=== PATIENT | female | born 1990 | race Caucasian/White ===

== ENCOUNTER 2017-06-01 16:27 | Observation (INO) | payer MEDICAID, SELFPAY ==
[2017-06-01 16:42] VITALS: BMI 23.3
[2017-06-01] MEDS: chlordiazePOXIDE 25 MG Capsule PO ×2 (16:56→21:04)
[2017-06-01] MEDS: Buprenorphine HCl 2 MG TAB.SUBL SL (16:56)
[2017-06-01 17:50] LABS: Absolute Lymphocyte Count 2.03 X10^3/ul (0.83-4.51); Absolute Neutrophil Count 7.4 X10^3/uL (2.0-7.7); Basophil# 0.03 X10^3/uL; Basophil% 0.3 % (0-1); Eosinophil# 0.05 X10^3/uL; Eosinophils% 0.5 % (0-5); Hemoglobin 13.8 g/dl (12.0-15.0); Lymphocyte # 2.03 X10^3/ul (4.0); Lymphocyte % 20.2 % (19-41); Mean Corp Hgb Conc 33.7 g/gl (32-36); Mean Corpuscular Hgb 27.8 pg (27.0-32.0); Mean Corpuscular Volume 82.5 fL (81-99); Mean Platelet Vol. 8.8 fl (6.2-12.0); Monocyte# 0.51 X10^3/uL; Monocyte% 5.1 % (0-10); Neutrophil # 7.35 X10^3/uL (2.7-7.7); Neutrophil % 73.3 % (47-70); POSITIVE COUNT NO; POSITIVE DIFFERENTIAL NO; POSITIVE MORPHOLOGY NO; Platelet Count 262 K/mm3 (150-450); RBC Distribution Width CV 13.1 % (11.6-14.6); RBC Distribution Width SD 39.5 fl (35.1-43.9); Red Blood Count 4.97 M/mm3 (4.2-5.4)
[2017-06-01 18:00] VITALS: BP 140/71; PULSE 78; RESP 18; TEMP 36.7
[2017-06-01 18:15] LABS: ALB/GLOB Ratio 0.9 RATIO (0.9-2.4); AST(SGOT) 26 U/L (15-37); Alanine Aminotransfer ALT/SGPT 27 U/L (12-78); Albumin, Serum 3.7 g/dL (3.4-5.0); Alkaline Phosphatase 79 U/L (45-117); Anion Gap 11 (5-15); BUN 13 mg/dL (7-18); BUN/Creat Ratio 19.2 RATIO (10-20); Calcium,Total 8.9 mg/dL (8.5-10.1); Chloride 108 mmol/L (98-107); Creatinine, Serum 0.68 mg/dL (0.55-1.02); EST Glomerular Filtration Rate 110 mL/min (>60); Est Glom Filt Rate - Afr Amer 132 mL/min (>60); Estimated Creatinine Clearance 105.41 ml/min; Globulin 4.2 g/dL (2.2-4.2); Glucose 92 mg/dL (70-110); Magnesium 1.9 mg/dL (1.6-2.6); Potassium 4.6 mmol/L (3.5-5.1); Protein, Total 7.9 g/dL (6.4-8.2); Sodium Level 140 mmol/L (136-145)
[2017-06-01] MEDS: Methocarbamol 750 MG Tablet PO (21:04)
[2017-06-01] MEDS: Famotidine 20 MG Tablet PO (21:04)
[2017-06-01] MEDS: cloNIDine HCl 0.1 MG Tablet PO (21:04)
[2017-06-01 21:08] VITALS: BP 103/61; PULSE 67; RESP 16; TEMP 36.8
--- NOTE | 2017-06-01 21:56 | PCM.HP.STD ---
Problem List (1) Opioid withdrawal Status: Acute (2) Heroin abuse Status: Chronic (3) Hepatitis C Status: Chronic Qualifiers: Viral hepatitis chronicity: carrier Qualified Code(s): B18.2 - Chronic viral hepatitis C History of Present Illness Date of Admission: 06/01/17 Chief Complaint: [facility] for opioid. Patient is a 27 years old female with history of heroin abuse. She has been using heroin with muscular injection about 0.5 gram a day. Her last use was about 18 hours ago, but she only has mild abdominal pain and jittery feeling. She had intervention in 10/2016, stayed clean for about 3 month then relapses. She denied of any problems with hallucination. Past Medical History Past Medical History (Chronic Problems): Chronic Problems Heroin abuse (Chronic) Cocaine abuse (Chronic) Tobacco use (Chronic) Hepatitis C (Chronic) Allergies No Known Allergies Allergy (Verified 11/01/16 13:59) Home Medications: Ambulatory Orders Medication Instructions Recorded No Known/Unobtainable [No Known 11/01/16 Home Medications] Surgical History: - - I+D LLE abscess. 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 Patient denied of any profound fatigue. HEENT: Unremarkable. Patient denied of any dizziness, chronic headache, blurred vision, double vision, dry mouth, or nasal congestion. CV/respiratory: There is no exertional shortness of breath, chest pain, palpitation, wheezing, cough, claudication, cold feet, or peripheral edema. GI: Patient denied any abdominal pain, nausea, vomiting, diarrhea, constipation, melena, or hematochezia. : Patient denied any significant urinary symptoms. Neurology: Unremarkable. There is no history of seizure as an adult. Psychological: Unremarkable. ?. Endocrine: Unremarkable. Musculoskeletal: Unremarkable. VTE Information - Inpt Only VTE Present on Admission: No VTE Mechan Device Prophylaxis: None VTE Pharm Prophylaxis ordered?: No Reason prophylaxis not ordered:: Treatment Not Indicated Patient Problems: Active and Suspected Problems Opioid withdrawal (Acute) Objective: In general, patient is a well-nourished and developed adult. HEENT: Head is atraumatic, and normocephalic. Pupils are equal, round, and reactive to light and accommodations. Neck is supple. There is no lymphadenopathy, or thyromegaly. Oral mucosa is pink, and moist. There are no lesions. Heart: Auscultation is normal with regular rhythm and rate. There is no extra heart sounds, or murmurs. S1 and S2 are present. Point of maximal impulse is not displaced. Lungs: Lungs are clear to auscultation bilaterally. There is no wheezing, or crackles. Abdomen: Abdominal wall is non-tender, and non-distended. There is no palpable mass or organomegaly. Normoactive bowel sounds are present. Extremities: There is no cyanosis or clubbing. Peripheral pulses are palpable. There is no edema. Skin: There are no any skin discoloration or lesions. Neurological: CN II - XII are intact. Sensory and motor functions are grossly normal with no obvious deficit. Cerebellar functions are within normal range. Gait was not tested. - Physical Exam Vital Signs Temp Pulse Resp BP 98.2 F 67 16 103/61 06/01/17 21:08 06/01/17 21:08 06/01/17 21:08 06/01/17 21:08 Weight: 135 lb 9.349 oz Body Mass Index (BMI) 23.3 Intake and Output for Last 24 Hours 05/30/17 05/31/17 06/01/17 23:59 23:59 23:59 Intake Total 600 / 600 Balance 600 / 600 Laboratory Tests Past 24 Hrs 06/01/17 06/01/17 17:40 17:40 WBC 10.0 RBC 4.97 Hgb 13.8 Hct 41.0 MCV 82.5 MCH 27.8 MCHC 33.7 RDW 13.1 RDW Differential 39.5 Plt Count 262 MPV 8.8 Immature Gran % (Auto) 0.600 Neut % (Auto) 73.3 H Lymph % (Auto) 20.2 [place] % (Auto) 5.1 Eos % (Auto) 0.5 Baso % (Auto) 0.3 Absolute Neuts (auto) 7.4 Absolute Lymphs (auto) 2.03 Total Counted Not Reportable Sodium 140 Potassium 4.6 Chloride 108 H Carbon Dioxide 21.0 Anion Gap 11 BUN 13 Creatinine 0.68 Estim Creat Clear Calc 105.41 Est GFR (MDRD) Af Amer 132 Est GFR (MDRD) Non-Af 110 BUN/Creatinine Ratio 19.2 Glucose 92 Calcium 8.9 Magnesium 1.9 Total Bilirubin 0.30 AST 26 ALT 27 Alkaline Phosphatase 79 Total Protein 7.9 Albumin 3.7 Globulin 4.2 Albumin/Globulin Ratio 0.9 Assessment/Plan Active and Suspected Problems Opioid withdrawal (Acute) Patient is a 27 years old female with history of heroin abuse. She has been using heroin with muscular injection about 0.5 gram a day. Her last use was about 18 hours ago, but she only has mild abdominal pain and jittery feeling. She had intervention in 10/2016, stayed clean for about 3 month then relapses. She denied of any problems with hallucination. #1 Opioid withdrawal. Initiate [facility] stabilization protocol. #2 Heroin abuse. #3 History of hep C. VTE prophylaxis: low risk. Early ambulation. GI prophylaxis: H2 james po. Patient is full code. Disposition: per [facility]. Code Visit Inpatient E&M: 94846 Init Hosp L2
[2017-06-02] VITALS (7 sets, daily range): BP systolic 83–105; BP diastolic 44–66; PULSE 48–89; RESP 16–18; TEMP 36.2–36.9
[2017-06-02] MEDS: chlordiazePOXIDE 25 MG Capsule PO ×4 (00:11→13:19)
[2017-06-02] MEDS: cloNIDine HCl 0.1 MG Tablet PO ×2 (00:11→05:37)
[2017-06-02] MEDS: Buprenorphine HCl 2 MG TAB.SUBL SL ×3 (00:11→17:36)
[2017-06-02] MEDS: Methocarbamol 750 MG Tablet PO ×2 (05:37→22:22)
--- NOTE | 2017-06-02 06:19 | PCM.PROGNOTE ---
Patient Problems: Active and Suspected Problems Opioid withdrawal (Acute) Subjective: Patient is a 27-year-old female who presented to the [facility] office requesting inpatient admission for opioid withdrawal. She has been injecting heroin intramuscularly. She had rehab in October 2016 and stayed clean for approximately 3 months prior to relapsing. Tells me that she relapsed because she was hanging out with her siblings who were using drugs. she attended and inpt rehab program in October and received Vivitrol which she would be interested in again. Uses 1-2 times a day and uses 0.5 GM or less daily. She is currently living with her 8 YO dtr and with the paternal GM. The baby's father is in correction. Past medical history also significant for cocaine abuse, tobacco dependence and hepatitis C. CBC and BMP were unremarkable. LFTs were normal. She is afebrile and vital signs are stable. Denies nausea, vomiting, diarrhea. She is requesting a nicotine patch. She is complaining of pain in both deltoid areas which is a frequent site of injection for her. She has had to have an I&D of an abscess in her leg in the past. - Physical Exam General: Alert, Oriented x3, Cooperative, No apparent distress, Well developed, Well nourished HEENT: Atraumatic, PERRLA, EOMI, Normocephalic Oral: Moist Mucosa Neck: Supple, Trachea Midline Lungs: Clear to auscultation Cardiovascular: Regular rate, Regular Rhythm, Normal S1, Normal S2, No murmurs, No rub noted, No Gallop Abdomen: Bowel Sounds Present, Soft, Non Tender, Non-Distended Extremities: - - She has evidence of injection in both deltoids. There is an area of localized swelling on the left side and it is very warm to touch. There is no open wound and there is no significant erythema. There is a mild increase in warmth on the right side with no erythema, no swelling and no erythema Skin: No rashes Neurological: Cranial nerves II-XII grossly intact, Neuro grossly intact Psych/Mental Status: Normal Affect, Appropriate Vital Signs Temp Pulse Resp BP 97.5 F L 89 17 105/61 06/02/17 05:38 06/02/17 05:38 06/02/17 05:38 06/02/17 05:38 Weight: 135 lb 9.349 oz Body Mass Index (BMI) 23.3 Intake and Output for Last 24 Hours 05/31/17 06/01/17 06/02/17 23:59 23:59 23:59 Intake Total 600 / 600 450 / 450 Balance 600 / 600 450 / 450 Laboratory Tests Past 24 Hrs 06/01/17 06/01/17 17:40 17:40 WBC 10.0 RBC 4.97 Hgb 13.8 Hct 41.0 MCV 82.5 MCH 27.8 MCHC 33.7 RDW 13.1 RDW Differential 39.5 Plt Count 262 MPV 8.8 Immature Gran % (Auto) 0.600 Neut % (Auto) 73.3 H Lymph % (Auto) 20.2 [place] % (Auto) 5.1 Eos % (Auto) 0.5 Baso % (Auto) 0.3 Absolute Neuts (auto) 7.4 Absolute Lymphs (auto) 2.03 Total Counted Not Reportable Sodium 140 Potassium 4.6 Chloride 108 H Carbon Dioxide 21.0 Anion Gap 11 BUN 13 Creatinine 0.68 Estim Creat Clear Calc 105.41 Est GFR (MDRD) Af Amer 132 Est GFR (MDRD) Non-Af 110 BUN/Creatinine Ratio 19.2 Glucose 92 Calcium 8.9 Magnesium 1.9 Total Bilirubin 0.30 AST 26 ALT 27 Alkaline Phosphatase 79 Total Protein 7.9 Albumin 3.7 Globulin 4.2 Albumin/Globulin Ratio 0.9 Assessment/Plan Active and Suspected Problems Opioid withdrawal (Acute) Impressions 1. acute opiate withdrawal 2. nicotine dependence 3. cellulitis with possible abscess left deltoid CT scan of the RUE Start Augmentin 875 BID Nicotine patch Continue the [facility] protocol for acute opiate withdrawal. Code Visit Inpatient E&M: 37824 Subs Hosp L2
[2017-06-02] MEDS: Famotidine 20 MG Tablet PO ×2 (09:29→22:23)
--- NOTE | 2017-06-02 10:10 | CT_ITS ---
STUDY: CT LEFT SHOULDER REASON FOR EXAM: Female, 27 years old. Evaluate for soft tissue abscess of. Patient injected heroin in the left deltoid muscle. RADIATION DOSAGE (If Supplied By Facility): CTDIvol = ( 12.30 ) mGy, DLP = ( 271.38 ) mGycm TECHNIQUE: The patient was scanned in a multi detector CT scanner. High resolution transaxial imaging was performed without the administration of intravenous contrast material. Sagittal and coronal images were reconstructed. Individualized dose optimization techniques were used for this CT. COMPARISON: None. FINDINGS: Normal glenohumeral articulation. Normal glenoid rim, neck and visualized scapula. Normal humeral head, neck and tuberosities. Normal coracoid process. Normal visualized lateral clavicle. Normal acromioclavicular articulation. There is a Type II morphology (curved), with a neutral orientation. There is mild decreased attenuation within the anterior left deltoid muscle. This does not have the appearance of an abscess but no IV contrast administered. Some of this appearance may be related to beam hardening and streak artifact. Myositis or pyomyositis cannot be excluded. The muscles otherwise have a normal appearance. CT/Extremity Upper without Contra IMPRESSION: Nonspecific decreased attenuation within the anterior deltoid muscle possibly related to myositis or artifact. Electronically Signed: Ioana Sun MD at 11:11 EST , Service support ,
[2017-06-02] MEDS: Dicyclomine 10 MG Capsule 20 MG PO (13:19)
[2017-06-02] MEDS: Amox/Clavulanate 875 MG Tablet PO (17:36)
[2017-06-02] MEDS: QUEtiapine 25 MG Tablet PO (22:23)
[2017-06-02 22:40] LABS: Internal QC Validated? YES +Cl - CLEAR BKGD; Pregnancy, Urine Negative Negative
[2017-06-03] MEDS: Buprenorphine HCl 2 MG TAB.SUBL SL ×3 (01:49→20:59)
[2017-06-03 02:00] VITALS: BP 95/76; PULSE 90; RESP 16; TEMP 36.2
--- NOTE | 2017-06-03 08:26 | PCM.PROGNOTE ---
Patient Problems: Active and Suspected Problems Opioid withdrawal (Acute) Subjective: 27-year-old female using IM heroin admitted to the [facility] program for medical stabilization for acute opiate withdrawal. Complained of pain in her left deltoid area 06/02/2017 and this is associated with localized swelling, redness and increased warmth to touch. This is a site she uses to inject heroin into the muscle. CT scan showed no evidence abscess but showed nonspecific decreased attenuation within the anterior deltoid muscle. She was started on Augmentin. She has been afebrile since admission. Vital signs are stable. BP is on the low side but, she is asymptomatic. The urine was negative The Left deltoid is still a little tender but no erythema today and no warmth to touch Denies diarrhea, nausea, vomiting and states that she is doing quite well. - Physical Exam General: Alert, Oriented x3, Cooperative, No apparent distress Lungs: Clear to auscultation Cardiovascular: Regular rate, Regular Rhythm, Normal S1, Normal S2, No murmurs, No rub noted, No Gallop Abdomen: Bowel Sounds Present, Soft, Non Tender, Non-Distended Extremities: No cyanosis, No edema, - - there is no erythema of the left deltoid today and no erythema or increased warmth to touch......Suspect the pain and redness were due to recently shooting up in the deltoid muscle with tissue reaction Psych/Mental Status: Normal Affect, Appropriate Vital Signs Temp Pulse Resp BP 97.1 F L 90 16 95/76 06/03/17 02:00 06/03/17 02:00 06/03/17 02:00 06/03/17 02:00 Weight: 135 lb 9.349 oz Body Mass Index (BMI) 23.3 Intake and Output for Last 24 Hours 06/01/17 06/02/17 06/03/17 23:59 23:59 23:59 Intake Total 600 / 600 1730 / 1730 Balance 600 / 600 1730 / 1730 Laboratory Tests Past 24 Hrs 06/02/17 22:30 Urine Test Negative Assessment/Plan Active and Suspected Problems Opioid withdrawal (Acute) Impressions 1. acute opiate withdrawal 2. nicotine dependence 3. cellulitis with possible abscess left deltoid? abscess ruled out with CT of the LUE Continue the Augmentin while in the hospital but DC at [place] Continue the [facility] protocol for acute opiate withdrawal. Code Visit Inpatient E&M: 84603 Subs Hosp L2
--- NOTE | 2017-06-03 08:30 | PN_ITS ---
Patient Problems: Active and Suspected Problems Opioid withdrawal (Acute) Subjective: 27-year-old female using IM heroin admitted to the [facility] program for medical stabilization for acute opiate withdrawal. Complained of pain in her left deltoid area 06/02/2017 and this is associated with localized swelling, redness and increased warmth to touch. This is a site she uses to inject heroin into the muscle. CT scan showed no evidence abscess but showed nonspecific decreased attenuation within the anterior deltoid muscle. She was started on Augmentin. She has been afebrile since admission. Vital signs are stable. BP is on the low side but, she is asymptomatic. The urine was negative The Left deltoid is still a little tender but no erythema today and no warmth to touch Denies diarrhea, nausea, vomiting and states that she is doing quite well. - Physical Exam General: Alert, Oriented x3, Cooperative, No apparent distress Lungs: Clear to auscultation Cardiovascular: Regular rate, Regular Rhythm, Normal S1, Normal S2, No murmurs, No rub noted, No Gallop Abdomen: Bowel Sounds Present, Soft, Non Tender, Non-Distended Extremities: No cyanosis, No edema, - - there is no erythema of the left deltoid today and no erythema or increased warmth to touch......Suspect the pain and redness were due to recently shooting up in the deltoid muscle with tissue reaction Psych/Mental Status: Normal Affect, Appropriate Vital Signs Temp Pulse Resp BP 97.1 F L 90 16 95/76 06/03/17 02:00 06/03/17 02:00 06/03/17 02:00 06/03/17 02:00 Weight: 135 lb 9.349 oz Body Mass Index (BMI) 23.3 Intake and Output for Last 24 Hours 06/01/17 06/02/17 06/03/17 23:59 23:59 23:59 Intake Total 600 / 600 1730 / 1730 Balance 600 / 600 1730 / 1730 Laboratory Tests Past 24 Hrs 06/02/17 22:30 Urine Test Negative Assessment/Plan Active and Suspected Problems Opioid withdrawal (Acute) Impressions 1. acute opiate withdrawal 2. nicotine dependence 3. cellulitis with possible abscess left deltoid? abscess ruled out with CT of the LUE Continue the Augmentin while in the hospital but DC at [place] Continue the [facility] protocol for acute opiate withdrawal. Code Visit Inpatient E&M: 98490 Subs Hosp L2
[2017-06-03 09:10] VITALS: BP 88/47; PULSE 73; RESP 18; TEMP 36.3
[2017-06-03] MEDS: Famotidine 20 MG Tablet PO ×2 (09:12→21:00)
[2017-06-03] MEDS: Amox/Clavulanate 875 MG Tablet PO ×2 (09:12→17:27)
[2017-06-03 17:26] VITALS: BP 107/79; PULSE 76; RESP 18; TEMP 36.3
[2017-06-03] MEDS: Dicyclomine 10 MG Capsule 20 MG PO (17:27)
[2017-06-03] MEDS: Methocarbamol 750 MG Tablet PO (17:27)
[2017-06-03] MEDS: QUEtiapine 25 MG Tablet PO (21:14)
[2017-06-03 22:00] VITALS: BP 96/58; PULSE 86; RESP 16; TEMP 36.8
[2017-06-04] MEDS: Methocarbamol 750 MG Tablet PO (00:09)
[2017-06-04 06:21] VITALS: BP 84/44; PULSE 58; RESP 16; TEMP 36.8
[2017-06-04 08:45] VITALS: BP 93/54; PULSE 71; RESP 16; TEMP 36.4
[2017-06-04] MEDS: Buprenorphine HCl 2 MG TAB.SUBL SL (08:47)
[2017-06-04] MEDS: Famotidine 20 MG Tablet PO (08:48)
[2017-06-04] MEDS: Amox/Clavulanate 875 MG Tablet PO (08:48)
--- NOTE | 2017-06-04 09:51 | PCM.DC ---
- Discharge Diagnoses Current Active Problems: Current Active and Chronic Problems Opioid withdrawal (Acute) You will use the following diet at home:: No restrictions Your food should be the consistency of: Regular Your liquids should be the consistency of: Regular/Thin Discharge Activity: Return to Normal Activity Weight Bearing Status: Full weight bearing Allergies/Adverse Reactions: Allergies No Known Allergies Allergy (Verified 11/01/16 13:59) Medications to take at Discharge No Known/Unobtainable [No Known Home Medications] 11/01/16 Primary Care Physician: Care Physician,No Primary [Primary Care Provider] - Please follow up with your Primary Care Physician in: as needed
--- NOTE | 2017-06-04 14:56 | PCM.DC.SUM ---
Discharge Date and Diagnosis Date of Admission: 06/01/17 Date of Discharge: 06/04/17 - Primary Discharge Diagnosis #1 acute opioid withdrawal #2 heroin addiction #3 cellulitis of the left deltoid area - Secondary Discharge Diagnosis Chronic Problems Heroin abuse (Chronic) Cocaine abuse (Chronic) Tobacco use (Chronic) Hepatitis C (Chronic) Hospital Course and Treatment Operations: None Procedures: None Summary of Care Provided: The patient is a 27 year old F who was admitted directly into the medical stabilization program at [facility] for acute opioid withdrawal from heroin. Patient injects heroin intramuscularly. Orders were entered using the standard medical stabilization order sets, she had an area of induration in her left deltoid area where she had injected heroin in the past and it was felt that she had a mild cellulitis in this area and she was placed on antibiotics during her hospital stay. On 06/04/17, patient was seen and examined and felt to be in stable condition for discharge home, the area on her left deltoid at the time of discharge was minimally tender and it was non-reddened and it was not felt that the patient needed antibiotics as an outpatient. Discharge Activity: Return to Normal Activity Weight Bearing Status: Full weight bearing Home Medications: Medications to take at Discharge No Known/Unobtainable [No Known Home Medications] 11/01/16 Primary Care Physician: Care Physician,No Primary [Primary Care Provider] - Please follow up with your Primary Care Physician in: as needed Disposition: Home Minutes spent on discharge:: 32 Patient Condition:: Stable Meaningful Use Info Meaningful Use Diagnoses (Choose all that apply): None applicable Code Visit Inpatient E&M: [id number] Disch Hosp
--- NOTE | 2017-06-04 15:00 | DS.PCM_ITS ---
Discharge Date and Diagnosis Date of Admission: 06/01/17 Date of Discharge: 06/04/17 - Primary Discharge Diagnosis #1 acute opioid withdrawal #2 heroin addiction #3 cellulitis of the left deltoid area - Secondary Discharge Diagnosis Chronic Problems Heroin abuse (Chronic) Cocaine abuse (Chronic) Tobacco use (Chronic) Hepatitis C (Chronic) Hospital Course and Treatment Operations: None Procedures: None Summary of Care Provided: The patient is a 27 year old F who was admitted directly into the medical stabilization program at [facility] for acute opioid withdrawal from heroin. Patient injects heroin intramuscularly. Orders were entered using the standard medical stabilization order sets, she had an area of induration in her left deltoid area where she had injected heroin in the past and it was felt that she had a mild cellulitis in this area and she was placed on antibiotics during her hospital stay. On 06/04/17, patient was seen and examined and felt to be in stable condition for discharge home, the area on her left deltoid at the time of discharge was minimally tender and it was non- reddened and it was not felt that the patient needed antibiotics as an outpatient. Discharge Activity: Return to Normal Activity Weight Bearing Status: Full weight bearing Home Medications: Medications to take at Discharge No Known/Unobtainable [No Known Home Medications] 11/01/16 Primary Care Physician: Care Physician,No Primary [Primary Care Provider] - Please follow up with your Primary Care Physician in: as needed Disposition: Home Minutes spent on discharge:: 32 Patient Condition:: Stable Meaningful Use Info Meaningful Use Diagnoses (Choose all that apply): None applicable Code Visit Inpatient E&M: 90465 Disch Hosp
== END 2017-06-04 10:03 | disposition home or self-care (01) | DRG 434 ==
PROVIDERS: Internal Medicine; Admitting Provider Hospitalist; Visit Provider Internal Medicine
DX: F11.23 Opioid dependence with withdrawal (principal); B18.2 Chronic viral hepatitis C; L03.818 Cellulitis of other sites; F14.10 Cocaine abuse, uncomplicated; F17.210 Nicotine dependence, cigarettes, uncomplicated
CPT/HCPCS: 36415; 73200; 80053; 81025; 83735; 85025; 99218; 99406; G0378; G0379